=== PATIENT | male | born 1965 | race African-American/Black ===

== ENCOUNTER 2016-12-07 01:32 | Emergency (ER) | payer SELFPAY ==
[~2016-12-07] VITALS: Ht 182.9 cm; Wt 103.4 kg
[2016-12-07 01:45] VITALS: BP 139/88
--- NOTE | 2016-12-07 01:52 | NUR ---
TO ER BED 1
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
[2016-12-07] MEDS ORDERED: ALBUTEROL SULFATE/IPRATROPIU 3 ML SOL IH ONE (02:10)
[2016-12-07 03:10] VITALS: BP 130/80
--- NOTE | 2016-12-07 03:10 | NUR ---
Patient discharged with v/s stable. Written and verbal after care instructions given and explained. Patient alert, oriented and verbalized understanding of instructions. Ambulatory with steady gait. All questions addressed prior to discharge. ID band removed. Patient advised to follow up with PMD. Rx of GUAIATUSSIN AC 100 MG/10MG/5 ML, ALBUTEROL 90MCG/ACTUATION, ZZITHROMYCIN 250 MG, [facility] HYDROCORTISONE CREAM 1% given. Patient educated on indication of medication including possible reaction and side effects. Opportunity to ask questions provided and answered.
== END 2016-12-07 03:10 | disposition home or self-care (01) ==
LOC: MED 01:32
DX: J20.9 Acute bronchitis, unspecified (principal); I10 Essential (primary) hypertension
CPT/HCPCS: 36415; 94640; 99283; J7620

== ENCOUNTER 2017-01-09 22:17 | Emergency (ER) | payer SELFPAY ==
[~2017-01-09] VITALS: Ht 190.5 cm; Wt 106.6 kg
[2017-01-09 22:22] VITALS: BP 139/80
--- NOTE | 2017-01-10 01:26 | NUR ---
PT TAKEN TO BED 7
--- NOTE | 2017-01-10 01:33 | NUR ---
Dr. Alvarez evaluating patient at bedside.
[2017-01-10] MEDS ORDERED: traMADol 50 MG TAB PO ONE (01:35)
[2017-01-10] MEDS ORDERED: ONDANSETRON 4 MG ODT PO ONE (01:35)
[2017-01-10 02:02] VITALS: BP 142/73
--- NOTE | 2017-01-10 02:02 | NUR ---
Patient discharged with v/s stable. Written and verbal after care instructions given and explained. Patient alert, oriented and verbalized understanding of instructions. Ambulatory with steady gait. All questions addressed prior to discharge. ID band removed. Patient advised to follow up with PMD. Rx of Tramadol and Zofran given. Patient educated on indication of medication including possible reaction and side effects. Opportunity to ask questions provided and answered.
== END 2017-01-10 02:02 | disposition home or self-care (01) ==
LOC: MED 22:17
DX: A08.4 Viral intestinal infection, unspecified (principal)
CPT/HCPCS: 99283; S0119

== ENCOUNTER 2017-03-23 18:10 | Emergency (ER) | payer MEDICAID ==
[~2017-03-23] VITALS: Ht 182.9 cm; Wt 105.7 kg
--- NOTE | 2017-03-23 18:56 | NUR ---
Patient taken to CT scan from ED lobby via wheelchair by tech.
[2017-03-23 19:30] LABS: BASOPHILS # (AUTO) 0.1 K/uL (0.00-0.22); BASOPHILS % (AUTO) 0.9 % (0.0-2.0); EOSINOPHILS # (AUTO) 0.1 K/uL (0-0.4); EOSINOPHILS % (AUTO) 1.1 % (0.0-4.0); HEMATOCRIT 40.9 % (36-52); HEMOGLOBIN 13.7 g/dL (12.0-18.0); LYMPHOCYTES # (AUTO) 0.9 K/uL (2.0-11.5); LYMPHOCYTES % (AUTO) 15.1 % (20.5-51.1); MEAN CORPUSCULAR HEMOGLOBIN 30 pg (27-31); MEAN CORPUSCULAR HGB CONC 34 g/dL (33-37); MEAN CORPUSCULAR VOLUME 90 fL (80-94); MONOCYTES # (AUTO) 0.6 K/uL (0.8-1.0); MONOCYTES % (AUTO) 9.2 % (1.7-9.3); NEUTROPHILS # (AUTO) 4.5 K/uL (1.8-7.7); NEUTROPHILS % (AUTO) 73.7 % (42.2-75.2); PLATELET COUNT (AUTO) 168 K/uL (140-450); RED BLOOD CELL COUNT(AUTO) 4.55 MIL/uL (4.20-6.10); RED CELL DISTRIBUTION WIDTH 12.5 % (11.6-13.7); WHITE BLOOD COUNT (AUTO) 6.2 K/uL (4.8-10.8)
[2017-03-23 19:39] LABS: APPEARANCE,URINE CLEAR (CLEAR); BILIRUBIN,URINE 1+ (NEGATIVE); BLOOD, URINE 1+ (NEGATIVE); LEUKOCYTE ESTERASE ,URINE NEGATIVE (NEGATIVE); NITRITE, URINE NEGATIVE (NEGATIVE); PH,URINE 5.5 (5.0-9.0); PROTEIN,URINE TRACE (NEGATIVE); UGLUCOSE NEGATIVE (NEGATIVE); UROBILINOGEN,URINE >=8.0 EU/dL (0.2 - 1)
[2017-03-23 19:44] LABS: COLOR,URINE AMBER (YELLOW)
[2017-03-23 19:53] LABS: ALBUMIN 3.9 g/dL (3.4-5.0); ANION GAP 11.9 (8-16); CALCIUM 9.1 mg/dL (8.5-10.1); CARBON DIOXIDE 28.8 mmol/L (21-32); CREATININE 1.2 mg/dL (0.6-1.3); POTASSIUM 3.7 mmol/L (3.5-5.1); TOTAL BILIRUBIN 1.6 mg/dL (0.0-1.0); TOTAL PROTEIN, SERUM 7.8 g/dL (6.4-8.2)
--- NOTE | 2017-03-23 19:55 | NUR ---
Patient ambulated to bed 06.
--- NOTE | 2017-03-23 20:00 | NUR ---
51 Y/O M BIB FAMILY W/C/O ABD PAIN, NAUSEA, VOMITING AND DIARRHEA X 2 DAYS. DENIES ANY FEVER BUT STATES HAS HAD CHILLS FOR 2 DAYS WELL. ER MD MADE AWARE. NO S/S OF DISTRESS NOTED AT THE MOMENT.
--- NOTE | 2017-03-23 20:09 | NUR ---
Dr. Peck evaluating patient at bedside.
[2017-03-23 20:11] LABS: ICTOTEST NEGATIVE (NEGATIVE); RBC,URINE 0-5 (RARE) /HPF (0-5); WBC,URINE NONE SEEN /HPF (0-5)
[2017-03-23 20:12] LABS: BACTERIA,URINE None Seen /HPF (None Seen); SQUAMOUS EPITHELIAL CELL,UR None Seen /LPF (0-3 (FEW))
--- NOTE | 2017-03-23 20:15 | NUR ---
INFORMED THE PATIENT TO SIGN AMA FORM, PT. STATES " I WANT TO TALK TO THE DOCTOR, I WANT HIM TO GIVE ME SOMETHING TO SHOW MY WORK PLACE THAT I AM HERE TONIGHT" " I DONT WANT TO TALK TO YOU, I WANT TO TALK TO ONLY DOCTOR". INFORMED DR. OCASIO; OK TO GIVE A COPY OF AMA FORM.
--- NOTE | 2017-03-23 20:20 | NUR ---
Patient does not wish to proceed with medical care recommended by DR. OCASIO. Patient given information related to possible complications, up to and including , which could occur as a result of leaving hospital at this time. Patient verbalizes understanding of risks involved leaving against medical advice. Patient has signed AMA form.
[2017-03-23 20:24] VITALS: BP 152/76
== END 2017-03-23 20:20 | disposition left against medical advice (07) ==
LOC: MED 18:10
DX: K42.9 Umbilical hernia without obstruction or gangrene (principal); I10 Essential (primary) hypertension
CPT/HCPCS: 36415; 80053; 81001; 83690; 85025; 99285

== ENCOUNTER 2019-05-07 22:50 | Emergency (ER) | payer SELFPAY ==
[~2019-05-07] VITALS: Ht 182.9 cm; Wt 102.1 kg
[2019-05-07 22:50] VITALS: BP 142/91
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
--- NOTE | 2019-05-07 23:03 | NUR ---
ABDIRIZAK TRAN AT PT BED SIDE
[2019-05-07 23:10] VITALS: BP 142/91
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
== END 2019-05-07 23:10 | disposition home or self-care (01) ==
LOC: MED 22:50
DX: Z02.89 Encounter for other administrative examinations (principal)
CPT/HCPCS: 99283

== ENCOUNTER 2019-09-18 11:30 | Emergency (ER) | payer SELFPAY ==
[~2019-09-18] VITALS: Ht 182.9 cm; Wt 110.7 kg
[2019-09-18 11:37] VITALS: BP 128/98
--- NOTE | 2019-09-18 11:50 | NUR ---
PT AMBULATED TO ER BED 03
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
--- NOTE | 2019-09-18 12:54 | NUR ---
APPLIED KNEE IMMOBILIZER TO RIGHT KNEE WITHOUT ANY ISSUES. PT REPORTS THEIR KNEE FEELS BETTER.
[2019-09-18 12:56] VITALS: BP 121/89
== END 2019-09-18 12:56 | disposition home or self-care (01) ==
LOC: MED 11:30
DX: S82.001A Unspecified fracture of right patella, initial encounter for closed fracture (principal); I10 Essential (primary) hypertension; X58.XXXA Exposure to other specified factors, initial encounter; Y93.89 Activity, other specified; Y92.89 Other specified places as the place of occurrence of the external cause; Y99.8 Other external cause status
CPT/HCPCS: 29505; 99283

== ENCOUNTER 2020-02-08 11:33 | Emergency (ER) | payer SELFPAY ==
[~2020-02-08] VITALS: Ht 182.9 cm; Wt 102.1 kg
--- NOTE | 2020-02-08 11:41 | NUR ---
Patient ambulated to bed 4. RN evaluating patient at bedside.
--- NOTE | 2020-02-08 11:43 | NUR ---
54 Y/O M C/C TOOTHACHE X 2 DAYS. PER PT 04/13, PRESSURE/SHARP SENSATION. UNABLE TO GO TO DENTIST OFFICE DUE TO VIRUS, OFFICES CLOSED. PT NKA. HX HTN. RX LOSARTAN. NO N/V/D. SIDE RAIL X1.
[2020-02-08 11:47] VITALS: BP 143/97
--- NOTE | 2020-02-08 11:49 | NUR ---
Dr. Spence is evaluating the patient at bedside.
--- NOTE | 2020-02-08 11:55 | NUR ---
Dr. Spence is re-evaluating the patient at bedside.
[2020-02-08 12:08] VITALS: BP 143/97
--- NOTE | 2020-02-08 12:08 | NUR ---
Patient discharged with v/s stable. Written and verbal after care instructions given and explained. Patient alert, oriented and verbalized understanding of instructions. Ambulatory with steady gait. All questions addressed prior to discharge. ID band removed. Patient advised to follow up with PMD. Rx of AUGMENTIN,MOTRIN,NORCO given. Patient educated on indication of medication including possible reaction and side effects. Opportunity to ask questions provided and answered.
== END 2020-02-08 12:08 | disposition home or self-care (01) ==
LOC: MED 11:33
DX: K04.7 Periapical abscess without sinus (principal); I10 Essential (primary) hypertension
CPT/HCPCS: 99283

== ENCOUNTER 2022-08-22 20:56 | Emergency (ER) | payer MEDICAID ==
[~2022-08-22] VITALS: Ht 182.9 cm; Wt 104.3 kg
[2022-08-22 21:14] VITALS: BP 143/70
--- NOTE | 2022-08-22 21:18 | NUR ---
TO LOBBY A/W BED AMBULATORY
--- NOTE | 2022-08-22 22:26 | NUR ---
pt to bed 12
--- NOTE | 2022-08-22 22:28 | NUR ---
Patient BIB by his family. C/O right toe pain x today. Patient reported, dropped object on right toe today, right toe pain, no bleeding, no laceration wound.
--- NOTE | 2022-08-22 23:21 | NUR ---
Dr. Sweet examining patient.
[2022-08-22] MEDS ORDERED: MORPHINE SULFATE 10 MG/ML VIAL IM ONE (23:25)
[2022-08-22] MEDS ORDERED: CYCL-711 PO (23:33)
[2022-08-22] MEDS ORDERED: ACET-10509 PO (23:33)
[2022-08-22] MEDS ORDERED: ACET-8386 PO ×2 (23:33→23:36)
[2022-08-22] MEDS ORDERED: IBUP-2213 PO (23:33)
[2022-08-22 23:53] VITALS: BP 136/70
--- NOTE | 2022-08-22 23:53 | NUR ---
Patient discharged with v/s stable. Written and verbal after care instructions given and explained. Patient alert, oriented and verbalized understanding of instructions. Ambulatory with steady gait. All questions addressed prior to discharge. ID band removed. Patient advised to follow up with PMD. Rx of Flexeril, Ibuprofen, [place] and Tylenol given. Patient educated on indication of medication including possible reaction and side effects. Opportunity to ask questions provided and answered.
== END 2022-08-22 23:53 | disposition home or self-care (01) ==
LOC: MED 20:56
DX: S90.111A Contusion of right great toe without damage to nail, initial encounter (principal); I10 Essential (primary) hypertension; Z79.899 Other long term (current) drug therapy; Z98.890 Other specified postprocedural states; W22.8XXA Striking against or struck by other objects, initial encounter; Y93.89 Activity, other specified; Y92.89 Other specified places as the place of occurrence of the external cause; Y99.8 Other external cause status
CPT/HCPCS: 73660; 96372; 99283; J2270

== ENCOUNTER 2023-03-06 20:52 | Emergency (ER) | payer MEDICAID ==
[~2023-03-06] VITALS: Ht 182.9 cm; Wt 108.0 kg
[~2023-03-06 20:52] MED LIST: ACET-10509 PO; ACET-8905 PO; CYCL-711 PO; IBUP-2213 PO
[2023-03-06 20:57] VITALS: BP 134/81
--- NOTE | 2023-03-06 21:10 | NUR ---
PT PUT ON BED 4, ATTACHED TO PICKER PACKER. A/OX4, RESPIRATION EVEN, UNLABORED BREATHING
[2023-03-06] MEDS ORDERED: HYDROcodone/APAP 7.5/325 MG 1 TAB PO ONE (22:15)
[2023-03-06] MEDS ORDERED: ACET-8905 PO (22:16)
[2023-03-06] MEDS ORDERED: IBUP-2213 PO (22:16)
[2023-03-06] MEDS ORDERED: AMOX1TAB8 PO (22:16)
[2023-03-06] MEDS ORDERED: HYDROcodone/APAP 7.5/325 MG 1 TAB ONE (22:28)
[2023-03-06 22:34] VITALS: BP 134/81
== END 2023-03-06 22:34 | disposition home or self-care (01) ==
LOC: MED 20:52
DX: K04.7 Periapical abscess without sinus (principal); I10 Essential (primary) hypertension; Z79.899 Other long term (current) drug therapy
CPT/HCPCS: 99283

== ENCOUNTER 2023-07-15 16:20 | Emergency (ER) | payer MEDICAID ==
[~2023-07-15] VITALS: Ht 182.9 cm; Wt 62.6 kg
[~2023-07-15 16:20] MED LIST changes: +AMOX1TAB8 PO
[2023-07-15 16:32] VITALS: BP 136/79; PULSE 54; RESP 20; TEMP 98.4; O2SAT 97
[2023-07-15] MEDS ORDERED: BUPIVACAINE-MPF 0.5% 30 ML VIAL INJ ONE (16:55)
[2023-07-15] MEDS ORDERED: BUPIVACAINE-MPF 0.25% 30 ML VIAL INJ ONE (17:05)
[2023-07-15] MEDS ORDERED: AMOX1TAB8 PO (17:32)
[2023-07-15] MEDS ORDERED: ACET-5629 PO (17:32)
[2023-07-15 17:40] VITALS: BP 125/79; PULSE 60; RESP 20; TEMP 98.4; O2SAT 99
== END 2023-07-15 17:40 | disposition home or self-care (01) ==
LOC: MED 16:20
DX: K04.7 Periapical abscess without sinus (principal); I10 Essential (primary) hypertension; Z79.899 Other long term (current) drug therapy
CPT/HCPCS: 64400; 99284; J3490

== ENCOUNTER 2023-09-02 18:38 | Emergency (ER) | payer MEDICAID ==
[~2023-09-02] VITALS: Ht 182.9 cm; Wt 113.4 kg
[~2023-09-02 18:38] MED LIST changes: +ACET-5629 PO
[2023-09-02 18:53] VITALS: BP 138/87; PULSE 52; RESP 20; TEMP 97; O2SAT 97
[2023-09-02] MEDS ORDERED: LIDOCAINE 2% 1000 MG/50 ML VIAL INJ ONE (22:25)
[2023-09-03] MEDS ORDERED: BACI-418 TP (00:04)
[2023-09-03 00:13] VITALS: BP 150/91; PULSE 57; RESP 14; O2SAT 97
== END 2023-09-03 00:07 | disposition home or self-care (01) ==
LOC: MED 18:38
DX: S61.112A Laceration without foreign body of left thumb with damage to nail, initial encounter (principal); I10 Essential (primary) hypertension; Z79.899 Other long term (current) drug therapy; Z79.2 Long term (current) use of antibiotics; Z79.1 Long term (current) use of non-steroidal anti-inflammatories (NSAID); W26.0XXA Contact with knife, initial encounter; Y93.89 Activity, other specified; Y92.89 Other specified places as the place of occurrence of the external cause; Y99.8 Other external cause status
CPT/HCPCS: 11760; 73140; 90471; 90715; 99285; J2001; 12001; 99283

== ENCOUNTER 2023-11-08 19:35 | Emergency (ER) | payer MEDICAID, OTHER ==
[~2023-11-08] VITALS: Ht 182.9 cm; Wt 104.3 kg
[~2023-11-08 19:35] MED LIST changes: +BACI-418 TP
[2023-11-08 19:41] VITALS: BP 124/73; PULSE 67; RESP 20; TEMP 97.1; O2SAT 98
[2023-11-08] MEDS ORDERED: SILVER SULFADIAZINE 1% 50 GM JAR TP ONE (20:00)
[2023-11-08] MEDS ORDERED: IBUP-2213 PO (20:12)
[2023-11-08 20:38] VITALS: BP 124/73; PULSE 67; RESP 20; TEMP 97.1; O2SAT 98
== END 2023-11-08 20:39 | disposition home or self-care (01) ==
LOC: MED 19:35
DX: T20.10XA Burn of first degree of head, face, and neck, unspecified site, initial encounter (principal); T22.152A Burn of first degree of left shoulder, initial encounter; T31.0 Burns involving less than 10% of body surface; X08.8XXA Exposure to other specified smoke, fire and flames, initial encounter; Y93.89 Activity, other specified; Y92.89 Other specified places as the place of occurrence of the external cause; Y99.8 Other external cause status
CPT/HCPCS: 16020; 99282